=== PATIENT | male | born 1980 | race Caucasian/White ===

== ENCOUNTER → 2023-06-20 | Outpatient (CLI) | payer BC, SELFPAY ==
[2023-06-20 16:08] LABS: Absolute Lymphocyte Count 0.88 X10^3/uL (0.83-4.51); Basophil# 0.03 X10^3/uL; Basophil% 0.7 % (0-1); Eosinophil# 0.07 X10^3/uL; Eosinophils% 1.6 % (0-5); Hematocrit 43.2 % (40-54); Hemoglobin 14.9 g/dL (13.0-16.5); Lymphocyte # 0.88 X10^3/ul (0.83-4.51); Mean Corp Hgb Conc 34.5 g/dL (32-36); Mean Corpuscular Hgb 30.7 pg (27.0-32.0); Mean Corpuscular Volume 89.1 fL (80-94); Mean Platelet Vol. 11.9 fl (6.2-12.0); Monocyte# 0.42 X10^3/uL; Monocyte% 9.5 % (0-10); NRBC Flagged by Analyzer 0 % (0-5); Neutrophil # 2.99 X10^3/uL (2.7-7.7); Platelet Count 156 K/mm3 (150-450); RBC Distribution Width CV 11.8 % (11.6-14.6); RBC Distribution Width SD 37.9 fl (35.1-43.9); Red Blood Count 4.85 M/mm3 (4.6-6.2); White Blood Count 4.4 K/mm3 (4.4-11.0)
[2023-06-20 16:20] LABS: ALB/GLOB Ratio 1.4 RATIO (0.9-2.4); AST(SGOT) 12 U/L (15-37); Alanine Aminotransfer ALT/SGPT 23 U/L (16-61); Albumin, Serum 4.4 g/dL (3.2-5.0); Alkaline Phosphatase 63 U/L (45-117); Anion Gap 5 (5-15); BUN 22 mg/dL (7-18); BUN/Creat Ratio 13.5 RATIO (10-20); Calcium,Total 9.8 mg/dL (8.5-10.1); Chloride 103 mmol/L (98-107); Creatinine, Serum 1.63 mg/dL (0.70-1.30); EST Glomerular Filtration Rate 50 mL/min (>60); Est Glom Filt Rate - Afr Amer 60 mL/min (>60); Globulin 3.2 g/dL (2.2-4.2); Glucose 132 mg/dL (74-106); Potassium 4.6 mmol/L (3.5-5.1); Protein, Total 7.6 g/dL (6.4-8.2); Sodium Level 140 mmol/L (136-145)
--- OUTSIDE RECORDS SUMMARY | 2023-06-20 20:53 | XMS RPT_ITS | CCD ---
Author Name Unknown Address [address] [place] [address] Organization [facility] Care Team Providers Care Development Trainer Name Role Phone Judah Nath Unavailable Unavailable Judah Nath Unavailable Unavailable Judah Nath Unavailable Unavailable Judah Nath Unavailable Unavailable PROVIDER, UNKNOWN Unavailable Unavailable No, PCP Unavailable Unavailable Unavailable Primary Care Provider UnavailJudah Azevedo (Historical) Primary Care Prov ider Anel RIOS MD, DR SOTO Attending Unav JUDAH Perales MD Primary Care Unavailab BRITTANY Tucker Referring Unava ilJUDAH Sanders Primary Care UnavailBRITTANY Soto Referring Unava ilJUDAH Sanders Primary Care Unavaila NOBLE Romero Attending Unavailable SELF Referring Unavailable THI MADISON Attending Unavailable Medications Completed/Discontinued Medications Medication Drug Class(es) Dates Sig (Normalized) Sig (Original) Ibuprofen (1 source) Nonsteroidal Anti-inflammatory Drug IBUPROFEN ORAL Ta ke by mouth as needed. 0 Active Problems Active Problems Problem Classification Problem Date Documented Date Episodic/Chronic Disorders of lipid metabolism (1 source) Hypertriglyceridemia ; Translations: [Pure hyperglyceridemia] Onset: 05-07-2022 05-07-2022 Chronic Multiple sclerosis (2 sources) Multiple sclerosis; Translations: [Multiple sclerosis] Onset: 05-07-2022 05-07-2022 Chronic Other aftercare (2 sources) Other termite control service representative (current) drug therapy; Translations: [On angiotensin receptor blockers (ARB)] Onset: 12-22-2022 Episodic Other male genital disorders (1 source) Secondary erectile dysfunction; Translations: [Male erectile dysfunction, unspecified] Onset: 05-07-2022 05-07-2022 Chronic Other nervous system disorders (2 sources) Demyelinating disease of central nervous system, unspecified; Translations: [Demyelinating disease of central nervous system, unspecified] Onset: 03-09-2017 Chronic Other nutritional; endocrine; and metabolic disorders (1 source) Lipoprotein deficiency disorder; Translations: [Lipoprotein deficiency] Onset: 05-07-2022 05-07-2022 Chronic Spondylosis; intervertebral disc disorders; other back problems (2 sources) Spondylosis without myelopathy or radiculopathy, cervical region; Translations: [Spondylosis w/o myelopathy or radiculopathy, cervical region] Onset: 02-28-2017 Chronic Past or Other Problems Problem Classification Problem Date Documented Date Episodic/Chronic Genitourinary symptoms and ill-defined conditions (3 sources) Disorder of the urinary system; Translations: [Other symptoms and signs involving the genitourinary system] Onset: 05-07-2022 Episodic Malaise and fatigue (2 sources) Weakness; Translations: [Weakness] Onset: 03-09-2017 Episodic Other connective tissue disease (4 sources) Pain in left arm; Translations: [Pain in right arm] Onset: 03-09-2017 Episodic Other nervous system disorders (4 sources) Anesthesia of skin; Translations: [Paresthesia of skin] Onset: 02-28-2017 Episodic Urinary tract infections (1 source) Acute cystitis with hematuria; Translations: [Acute cystitis with hematuria] Onset: 10-07-2022 Episodic Results Test Name Value Interpretation Reference Range Facil ity Vital Signs Date Time Vital Sign Value Performing Clinician Faci lity 05-07-2022 18:07-0500 Body temperature 98.91 [degF] Noble Mora MD Work Phone: [facility] 05-07-2022 18:07-0500 Body weight 89.18 kg Noble Mora MD Work Phone: [facility] 05-07-2022 18:07-0500 Diastolic blood pressure 90 mm[Hg] Noble Mora MD Work Phone: [facility] 05-07-2022 18:07-0500 Heart rate 71 /min Noble Mora MD Work Phone: [facility] 05-07-2022 18:07-0500 Respiratory rate 18 /min Noble Mora MD Work Phone: [facility] 05-07-2022 18:07-0500 SaO2% (BldA) [Mass fraction] 100 % Noble Mora MD Work Phone: [facility] 05-07-2022 18:07-0500 Systolic blood pressure 160 mm[Hg] Noble Mora MD Work Phone: [facility] Encounters Encounter Date Encounter Type Care Provider Facility Start: 03-09-2023 End: 03-10-2023 ambulatory BRITTANY RIOS Facility:[id number] Start: 01-05-2023 End: 01-06-[address] BRITTANY RIOS MD Facility:A Start: 12-22-2022 End: 12-23-2022 ambulatory BRITTANY RIOS Facility:[id number] Start: 10-07-2022 End: 10-07-2022 ambulatory SELF Facility:[id number] Start: 05-07-2022 End: 05-07-2022 ambulatory NOBLE MORA Facility:[id number] Start: 05-07-2022 End: 05-07-2022 Office outpatient visit 15 minutes Noble Mora MD Work Phone: [facility] [place] Procedures Date Procedure Procedure Detail Performing Clinician Start: 05-07-2022 Urnls dip stick/tabl et rgnt auto w/o microscopy Nicolasa Santo MD Work Phone: Plan of Treatment Date Care Activity Detail Author Start: 04-11-2022 DEPRESSION ASSESSMENT DEPRESSION ASS ESSMENT [facility] Start: 12-10-2021 Influenza vaccination INFLUENZA (#1) [facility] Start: 03-15-2019 PNEUMOCOCCAL (2 - PCV) PNEUMOCOCCAL (2 - PCV) [facility] Start: 2016 LIPID SCREEN LIPID SCREEN [facility] Start: 2000 SHINGRIX VACCINE (1 of 2) SHINGRIX V ACCINE (1 of 2) [facility] Start: 2000 Urine microalbumin profile DTAP,TDAP,TD (1 - Tdap) [facility] Start: 07-11-1999 HIV SCREENING HIV SCREENING [facility] Start: 01-09-1982 COVID-19 VACCINE (#1) COVID-19 VACCI NE (#1) [facility] Start: 1981 HEPATITIS B (1 of 3 - 3-dose series) HEPATITIS B (1 of 3 - 3-dose series) [facility] Immunizations Immunization Date Immunization Notes Care Provider Fa cility 01-01-2019 influenza, injectabl e, quadrivalent, contains preservative Noble Mora MD Work Phone: [facility] Work Phone: 03-15-2018 influenza, injectabl e, quadrivalent, preservative free Noble Mora MD Work Phone: [facility] Work Phone: 03-15-2018 pneumococcal polysaccharide vaccine, 23 valent Noble Mora MD Work Phone: [facility] Work Phone: 02-21-2013 tetanus toxoid, redu elian diphtheria toxoid, and acellular pertussis vaccine, adsorbed Noble Mora MD Work Phone: [facility] Work Phone: 01-19-2012 influenza, seasonal, injectable Noble Mora MD Work Phone: [facility] Work Phone: 03-24-2011 influenza virus vacc ine, split virus (incl. purified surface antigen) Noble Mora MD Work Phone: [facility] Work Phone: 04-02-2009 hepatitis A vaccine, adult dosage Noble Mora MD Work Phone: [facility] Work Phone: Payers Date Payer Category Payer Unknown 2013 Unknown [id number] 1980 Unknown [id number] Social History Date Type Detail Facility [facility] Start: 1980 Sex Assigned At Not on file [facility] Start: 05-07-2022 Tobacco smoking stat [facility] Never smoked tobacco [facility] Start: 05-07-2022 Tobacco use and exposure Smokeless t obacco non-user [facility] Start: 05-07-2022 Alcohol intake Current drinke r of alcohol (finding) [facility] Start: 05-07-2022 Alcohol Comment once every 3 weeks [facility] Progress note 10-07-2022 Note Date & Type Note Facility 10-07-2022 Note HNO ID: [id number] Author: Thi Madison MD Service: ? Author Type: Physician Type: Progress Notes Filed: 10/07/2022 6:19 PM Note Text: Lurdes Saunders is a 42 year old MALE who presents with UTI (Blood in urine pt has MS) 42 years old male present with blood in the urine since yesterday He is still have blood in his urine today. Denies any dysuria No fever chills, no back pain no abdominal pain He has history of MS Does have history of kidney stone in the past Also had blood in his urine in the past but patient stated that his MS medication predispose him to get UTI No other problem at this visit History reviewed. No pertinent past medical history. 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 No current facility-administered medications for this visit. Social History Tobacco Use Smoking status: Never Smokeless tobacco: Never Vaping Use Vaping Use: Never used Substance Use Topics Alcohol use: Yes Comment: once every 3 weeks Drug use: Yes Types: Marijuana Comment: gummy Alcohol Use: Yes (once every 3 weeks) Tobacco Use: Never History reviewed. No pertinent family history. Review of Systems Constitutional: Negative for chills and fever. HENT: Negative. Respiratory: Negative. Cardiovascular: Negative. Gastrointestinal: Negative. Genitourinary: Positive for hematuria. BP 178/88 Pulse 70 Temp 98.6 Resp 16 Wt 202 lb (91.6kg) SpO2 98% Physical Exam Vitals reviewed. Constitutional: General: He is not in acute distress. Appearance: Normal appearance. He is not ill-appearing or toxic-appearing. HENT: Mouth/Throat: Mouth: Mucous membranes are moist. Pharynx: Oropharynx is clear. Cardiovascular: Rate and Rhythm: Normal rate and regular rhythm. Heart sounds: Normal heart sounds. Pulmonary: Effort: Pulmonary effort is normal. Breath sounds: Normal breath sounds. Abdominal: General: There is no distension. Palpations: There is no mass. Tenderness: There is no abdominal tenderness. There is no right CVA tenderness, left CVA tenderness, guarding or rebound. Musculoskeletal: General: Tenderness: .. Cervical back: Normal range of motion and neck supple. Neurological: Mental Status: He is alert. External patient that his urine show blood and trace leukocyte, I will treat him for UTI. He must follow-up with his doctor for further ration care. Patient understand and agreed Explained to him for possible causes of blood in the urine as well. ASSESSMENT/PLAN: 1. Dysuria - ICD9: 788.1, ICD10: R30.0 (primary diagnosis) - URINALYSIS, DIPSTICK ONLY 2. Acute cystitis with hematuria - ICD9: 595.0, ICD10: N30.01 - NITROFURANTOIN MONOHYDRATE AND MACROCRYSTAL 100 MG ORAL CAP - URINE CULTURE Plenty of fluids, Antibiotic as per direction. Follow-up with your doctor for evaluation care Explained details Thi Madison MD [facility] Progress note 05-07-2022 Note Date & Type Note Facility 05-07-2022 Note HNO ID: [id number] Author: Noble Mora MD Service: ? Author Type: Physician Type: Progress Notes Filed: 05/07/2022 6:26 PM Note Text: Urinary Problem (Started last night /Denies chance of STI /States he has MS and is on a new medication that does decrease his immune system ) and Abdominal Pain (Right mid quad ) History of Present Illness: Lurdes Saunders is a 41 year old male with a history of onset 1 days ago. Dysuria: No Increase in frequency of urination: No Urgency: No Sense of incomplete void: No Fevers: No Chills: No Sweats: No Vomiting: No Diarrhea: No Abdominal pain: No: Blood visible in urine: Yes New onset of back pain: Yes, about 1 week of pain in right ALLERGIES No Known Allergies PHYSICAL EXAMINATION: BP 160/90 Pulse 71 Temp 37.2 ?C (98.9 ?F) (Temporal) Resp 18 Wt 89.2 kg (196 lb 9.6 oz) SpO2 100% General Appearance: age-appropriate male, pleasant, not toxic, looks well, and in no accute distress Oropharyngx: Lesions: No Moist: No Heart: Negative. RRR without murmur, gallop, or rubs. No ectopy. Lungs: CTA bilaterally Abdomen: normal bowel sounds, non-tender, no rebound, and no guarding CVA Tenderness: No Skin: warm, dry, and normal to palpation ASSESSMENT: Nephrolithiasis PLAN: Fluids Rest Tylenol as needed Patient instructed to return to [facility] or go to the emergency department for problems, worsening, increased or new symptoms, etc. Condition on discharge: good Disposition: Home Physician: Noble Mora MD [facility] Instructions 05-07-2022 Patient Instructions Note Date & Type Note Facility 05-07-2022 Instructions Noble Mora MD - 05/07/2022 6:26 PM EST Kidney Stones Patient Information You have been seen for a kidney stone. A kidney stone is a hard mineral and crystalline material (a lot like gravel). It forms inside the kidney or the urinary tract. When it moves from the kidney into the tube between the kidney and the bladder (the ureter), it causes severe pain. Kidney stones form when there is less urine (pee) or too many stone-forming substances in the urine. Normally, kidney stones are made of calcium oxalate or calcium phosphate. Kidney stones associated with infection in the urinary tract are called struvite or infection stones. Symptoms include sharp pain in the side that may radiate (spread) to the groin. Nausea and vomiting are also common. A doctor diagnosed your kidney stone based on your exam, urine test, and medical history. The doctor may have run a special test called a helical CT stone study or an intravenous pyelogram (IVP). Men get kidney stones more often than women. Whites get them more often than -Americans. Kidney stones become more common when men reach their 40s. The risk gets higher with age. People who have already had more than one kidney stone often get more stones. There are different conditions that can cause kidney stones: Hypercalcuria is an inherited (genetic) condition that causes high calcium in the urine. This causes stones in more than half of cases. There are other conditions that cause an increased risk of kidney stones. These include gout (a joint condition), hyperparathyroidism (a hormone condition), inflammatory bowel disease (Crohn s disease and Ulcerative colitis) and intestinal bypass surgery. They also include kidney diseases like renal tubular acidosis. Certain medicines also increase the risk of kidney stones. These include some diuretics (water pills), antacids with calcium, and the HIV drug indinavir (Crixivan ). Most kidney stones pass on their own. Larger stones or stones that don t pass in a few days may need to be taken out. This is done by a urologist (a doctor who specializes in the urinary tract). Kidney stones are normally treated with pain and nausea medicine. You should drink lots of fluid--up to 8 glasses of water a day. You should follow up with a urologist in the next 2-3 weeks. Strain all of your urine so you can catch the kidney stone as it passes out of the bladder. Keep the stone and bring it with you to your urology appointment. The urologist may have the stone tested to find out what it is made of. This may help the urologist recommend diet changes. He or she may also suggest medicines to help prevent more kidney stones. YOU SHOULD SEEK MEDICAL ATTENTION IMMEDIATELY, EITHER HERE OR AT THE NEAREST EMERGENCY DEPARTMENT, IF ANY OF THE FOLLOWING OCCURS: The pain gets worse or the medicine isn t enough to treat your pain. You get sick (nausea) or vomit and can t keep down fluids or pain medicine. You have a fever (temperature higher than 100.4 F / 38 C) or shaking chills. documented in this encounter [facility] History of Present illness Narrative 05-07-2022 Noble Mora MD - 05/07/2022 6:16 PM EST Note Date & Type Note Facility 05-07-2022 History of Presen t illness Narrative Urinary Problem (Started last night /Denies chance of STI /States he has MS and is on a new medication that does decrease his immune system ) and Abdominal Pain (Right mid quad ) History of Present Illness: Lurdes Saunders is a 41 year old male with a history of onset 1 days ago. Dysuria: No Increase in frequency of urination: No Urgency: No Sense of incomplete void: No Fevers: No Chills: No Sweats: No Vomiting: No Diarrhea: No Abdominal pain: No: Blood visible in urine: Yes New onset of back pain: Yes, about 1 week of pain in right ALLERGIES No Known Allergies PHYSICAL EXAMINATION: BP 160/90 Pulse 71 Temp 37.2 C (98.9 F) (Temporal) Resp 18 Wt 89.2 kg (196 lb 9.6 oz) SpO2 100% General Appearance: age-appropriate male, pleasant, not toxic, looks well, and in no accute distress Oropharyngx: Lesions: No Moist: No Heart: Negative. RRR without murmur, gallop, or rubs. No ectopy. Lungs: CTA bilaterally Abdomen: normal bowel sounds, non-tender, no rebound, and no guarding CVA Tenderness: No Skin: warm, dry, and normal to palpation ASSESSMENT: Nephrolithiasis PLAN: Fluids Rest Tylenol as needed Patient instructed to return to [facility] or go to the emergency department for problems, worsening, increased or new symptoms, etc. Condition on discharge: good Disposition: Home Physician: Noble Mora MD documented in this encounter [facility] Evaluation note Note Date & Type Note Facility documented in this encounter [facility] Summary Purpose Family History No Family History Records FoundNo Family History Records FoundNo Family History Records FoundNo Family History Records Found Advance Directives No Advanced Directives Records FoundNo Advanced Directives Records FoundNo Advanced Directives Records FoundNo Advanced Directives Records Found Additional Source Comments (unrecognized sect ion and content) No Status Records FoundNo Status Records FoundNo Status Records FoundNo Status Records Found INFORMATION SOURCE (unrecogn ized section and content) DATE CREATED AUTHOR AUTHOR'S ORGANIZ ATION 09/03/2021 [facility] [place] DATE CREATED AUTHOR AUTHOR'S ORGANIZ ATION 01/15/2023 [facility] ([place]) DATE CREATED AUTHOR AUTHOR'S ORGANIZ ATION 03/11/2023 [facility] Source Comments (unrecognize d section and content) In the event this informatio n is protected by the Federal Confidentiality of Alcohol and Drug Abuse Patient Records regulations: The Federal rules restrict any use of the information to criminally investigate or prosecute any alcohol or drug abuse patient.[facility] the event this information is protected by the Federal Confidentiality of Alcohol and Drug Abuse Patient Records regulations: The Federal rules restrict any use of the information to criminally investigate or prosecute any alcohol or drug abuse patient.[facility] the event this information is protected by the Federal Confidentiality of Alcohol and Drug Abuse Patient Records regulations: The Federal rules restrict any use of the information to criminally investigate or prosecute any alcohol or drug abuse patient.[facility] the event this information is protected by the Federal Confidentiality of Alcohol and Drug Abuse Patient Records regulations: The Federal rules restrict any use of the information to criminally investigate or prosecute any alcohol or drug abuse patient.[facility] the event this information is protected by the Federal Confidentiality of Alcohol and Drug Abuse Patient Records regulations: The Federal rules restrict any use of the information to criminally investigate or prosecute any alcohol or drug abuse patient.[facility] Reason for Visit (unrecogniz ed section and content) Care Teams (unrecognized sec tion and content) FOR RECORDS PERTAINING TO PATIENTS WHO ARE OR HAVE BEEN ENROLLED IN A CHEMICAL DEPENDENCY/SUBSTANCEABUSE PROGRAM, SOME INFORMATION MAY BE OMITTED. This clinical summary was aggregated from multiple sources. Caution should be exercised in using it in the provision of clinical care. This summary normalizes information from multiple sources, and as a consequence, information in this document may materially change the coding, format and clinical context of patient data. In addition, data may be omitted in some cases. CLINICAL DECISIONS SHOULD BE BASED ON THE PRIMARY CLINICAL RECORDS. [facility] [employer] [facility]. provides no warranty or guarantee of the accuracy or completeness of information in this document.
[2023-06-23 06:09] LABS: G6PD Quant Test 253 (127-427); Red Blood Cell Count Test/G6PD 4.91 x10E6/uL (4.14-5.80)
== END | disposition home or self-care (01) ==
PROVIDERS: Referring Provider Nurse Practitioner Family; Visit Provider Nurse Practitioner Family
DX: R53.1 Weakness (principal); B60.00 Babesiosis, unspecified; A69.22 Other neurologic disorders in Lyme disease
CPT/HCPCS: 80053; 82955; 85025

== ENCOUNTER → 2023-08-22 | Outpatient (CLI) | payer BC, SELFPAY ==
[2023-08-22 16:14] LABS: Absolute Lymphocyte Count 0.89 X10^3/uL (0.83-4.51); Absolute Neutrophil Count 2.9 X10^3/uL (2.0-7.7); Basophil# 0.05 X10^3/uL; Basophil% 1.1 % (0-1); Eosinophil# 0.16 X10^3/uL; Eosinophils% 3.7 % (0-5); Hematocrit 44.6 % (40-54); Hemoglobin 15.1 g/dL (13.0-16.5); Lymphocyte # 0.89 X10^3/ul (0.83-4.51); Lymphocyte % 20.4 % (19-41); Mean Corp Hgb Conc 33.9 g/dL (32-36); Mean Corpuscular Hgb 30.3 pg (27.0-32.0); Mean Corpuscular Volume 89.4 fL (80-94); Mean Platelet Vol. 12.7 fl (6.2-12.0); Monocyte# 0.39 X10^3/uL; Monocyte% 8.9 % (0-10); NRBC Flagged by Analyzer 0 % (0-5); Neutrophil # 2.87 X10^3/uL (2.7-7.7); Neutrophil % 65.7 % (47-70); Platelet Count 149 K/mm3 (150-450); RBC Distribution Width CV 12.4 % (11.6-14.6); RBC Distribution Width SD 40.8 fl (35.1-43.9); Red Blood Count 4.99 M/mm3 (4.6-6.2); White Blood Count 4.4 K/mm3 (4.4-11.0)
[2023-08-22 16:27] LABS: ALB/GLOB Ratio 1.6 RATIO (0.9-2.4); AST(SGOT) 16 U/L (15-37); Alanine Aminotransfer ALT/SGPT 26 U/L (16-61); Albumin, Serum 4.6 g/dL (3.2-5.0); Alkaline Phosphatase 66 U/L (45-117); Anion Gap 7 (5-15); BUN 18 mg/dL (7-18); BUN/Creat Ratio 15.5 RATIO (10-20); Calcium,Total 9.4 mg/dL (8.5-10.1); Chloride 103 mmol/L (98-107); Creatinine, Serum 1.16 mg/dL (0.70-1.30); EST Glomerular Filtration Rate 73 mL/min (>60); Est Glom Filt Rate - Afr Amer 89 mL/min (>60); Globulin 2.9 g/dL (2.2-4.2); Glucose 129 mg/dL (74-106); Potassium 4.1 mmol/L (3.5-5.1); Protein, Total 7.5 g/dL (6.4-8.2); Sodium Level 138 mmol/L (136-145)
== END | disposition home or self-care (01) ==
LOC: LABSPEC 15:44
PROVIDERS: Referring Provider Nurse Practitioner Family; Visit Provider Nurse Practitioner Family
DX: A69.22 Other neurologic disorders in Lyme disease (principal); G35 Multiple sclerosis; N18.30 Chronic kidney disease, stage 3 unspecified; B60.00 Babesiosis, unspecified; R53.1 Weakness; R20.8 Other disturbances of skin sensation; M62.50 Muscle wasting and atrophy, not elsewhere classified, unspecified site; R25.8 Other abnormal involuntary movements; R00.2 Palpitations; R51.9 Headache, unspecified; R32 Unspecified urinary incontinence
CPT/HCPCS: 80053; 85025